=== PATIENT | female | born 1975 | race Caucasian/White ===

== ENCOUNTER → 2016-10-01 | Outpatient (CLI) | payer OTHER ==
[~2016-10-01] MED LIST: CYAN10005 SQ; EPP3/2 IM; FEXO5TAB2 PO; GABA600T PO; OXYC-57 PO; PANT40TA PO; PRVHFAIN INH; QVRINH80 INH; TIZA4CAP PO
[2016-10-01 19:11] LABS: BLOOD UREA NITROGEN 8 mg/dl (7-18); BUN/CREATININE RATIO 10.5 (10-20); CALCIUM 8.2 mg/dl (8.5-10.1); CARBON DIOXIDE 26 mmol/L (21-32); CHLORIDE 103 mmol/L (98-107); GLUCOSE 119 mg/dl (70-99); POTASSIUM 3.5 mmol/L (3.5-5.1); SODIUM 139 mmol/L (136-145)
== END | disposition home or self-care (01) ==
LOC: C.LABMFLN 14:50
PROVIDERS: ATTEND Family Medicine
DX: R31.9 Hematuria, unspecified (principal)

== ENCOUNTER → 2016-10-14 | Outpatient (CLI) | payer OTHER ==
[2016-10-14 17:59] LABS: URINE APPEARANCE CLEAR (CLEAR); URINE BILIRUBIN NEG (NEG); URINE COLOR YELLOW; URINE NITRITE NEG (NEG); URINE PH 5.5 (4.5-7.5); URINE SPECIFIC GRAVITY 1.031 (1.000-1.030); UROBILINOGEN NEG (NEG)
[2016-10-14 18:03] LABS: MANUAL MICROSCOPIC REQUIRED? NO; REVIEW REQ? NO
[2016-10-14 18:05] LABS: BASO ABS # 0.07 K/uL (0-0.2); COMPLETE YES; EOS % 2.3 %; HEMATOCRIT 37.2 % (37-47); IG% 0.3 %; LYMPH % 33.6 %; LYMPH ABS # 2.45 K/uL (1.2-3.4); MEAN CELL VOLUME 90.5 fL (80-100); MEAN PLATELET VOLUME 10.8 fL (7.4-10.4); MONO % 10.4 %; NEUT % 52.4 %; PLATELET COUNT 265 K/uL (130-400); RED BLOOD COUNT 4.11 M/uL (4.2-5.4)
[2016-10-14 18:18] LABS: BLOOD UREA NITROGEN 8 mg/dl (7-18); BUN/CREATININE RATIO 12.7 (10-20); CALCIUM 8.1 mg/dl (8.5-10.1); CARBON DIOXIDE 28 mmol/L (21-32); CHLORIDE 104 mmol/L (98-107); CREATININE 0.66 mg/dl (0.60-1.20); GLUCOSE 70 mg/dl (70-99); POTASSIUM 3.5 mmol/L (3.5-5.1); SODIUM 140 mmol/L (136-145)
== END | disposition home or self-care (01) ==
LOC: C.LABMFLN 11:09
PROVIDERS: ATTEND Orthopaedic Surgery
DX: Z01.812 Encounter for preprocedural laboratory examination (principal)

== ENCOUNTER 2016-10-17 06:24 | Day surgery (SDC) | payer OTHER ==
[2016-10-14 14:20] VITALS: BMI 31.0
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
[~2016-10-17] VITALS: Ht 160 cm; Wt 81.8 kg
[~2016-10-17 06:24] MED LIST changes: +CEFAZOLIN 2000 MG/60 ML D5W IV SCH; +LACTATED RINGER'S 1000ML 1,000 ML IV SCH
[2016-10-17 06:45] VITALS: BP 101/61; PULSE 90; TEMP 36.5; O2SAT 99; Ht 160 cm; Wt 81.8 kg
[2016-10-17] MEDS ORDERED: FENTANYL CITRATE INJ 50 MCG/1 ML 2 ML VIAL ONE ×2 (07:55→08:43)
[2016-10-17] MEDS ORDERED: KETAMINE HCL INJ 50 MG/ML 10 ML VIAL ONE (07:55)
[2016-10-17] MEDS ORDERED: MIDAZOLAM HCL 1 MG/ML 2ML VIAL ONE (07:55)
--- NOTE | 2016-10-17 08:00 | History & Physical Bridge Note ---
H&P Re-Evaluation Bridge Note: I have examined the patient, reviewed the History & Physical and in the interval since the performance of the History & Physical I have noted the following changes of clinical significance: No changes noted
[2016-10-17] MEDS ORDERED: BUPIVACAINE/EPINEPHRINE 0.25% 1:200,000 30 ML VIAL ONE (08:19)
[2016-10-17] MEDS ORDERED: DEXAMETHASONE SOD INJ 4 MG/ML VIAL ONE ×2 (08:20→08:50)
[2016-10-17] MEDS ORDERED: ATROPINE SULFATE 0.1 MG/ML 5ML SYR IV PRN (08:30)
[2016-10-17] MEDS ORDERED: EpHEDrine SULFATE INJ 50 MG/ML AMP IV PRN (08:30)
[2016-10-17] MEDS ORDERED: ONDANSETRON INJ 2 MG/ML 2 ML VIAL IV PRN ×2 (08:30→09:30)
[2016-10-17] MEDS ORDERED: PROMETHAZINE HCL INJ 6.25 MG in SODIUM CHLORIDE 0.9% 50ML 50 ML IV PRN (08:30)
[2016-10-17] MEDS ORDERED: PROPOFOL IV EMULSION 10 MG/ML 20 ML VIAL IV ONE (08:50)
[2016-10-17] MEDS ORDERED: ONDANSETRON INJ 2 MG/ML 2 ML VIAL ONE (08:50)
[2016-10-17] MEDS ORDERED: LIDOCAINE HCL 2% 2 ML VIAL (20MG/ML) ONE (08:50)
[2016-10-17] MEDS ORDERED: SODIUM CHLORIDE 0.9% INJ 10 ML VIAL ONE (09:00)
[2016-10-17] MEDS ORDERED: KETOROLAC TROMETHAMINE 30 MG/ML VIAL ONE ×2 (09:00→09:06)
--- NOTE | 2016-10-17 09:11 | [facility] Post Operative Brief Note ---
Immediate Operative Summary Operative Date Oct 17, 2016. Pre-Operative Diagnosis Right distal radius fracture with possible carpal tunnel syndrome Post-Operative Diagnosis Same as preoperative diagnosis Procedure(s) Performed Right Distal Radius Open Reduction Internal Fixation Fracture; Right Wrist Carpal Tunnel Release Surgeon Dr Hill Public Health Engineer Surgeon(s) Johnnie Davis PA-C Estimated Blood Loss 0 Findings maluniting fracture Specimens none Complication(s) None Disposition Recovery Room / PACU
[2016-10-17] MEDS ORDERED: BACITRACIN 50,000 UNITS IR ONE (09:15)
--- NOTE | 2016-10-17 09:15 | DIAGNOSTIC IMAGING REPORT ---
INTRAOPERATIVE RADIOGRAPHS CLINICAL HISTORY: Open reduction and internal fixation of the right wrist. Fluoroscopy time: 13 seconds. FINDINGS: 2 spot fluoroscopic views of the right wrist are presented. There has been buttress plate fixation of a comminuted distal radial fracture. There is also an avulsion fracture of the ulnar styloid. Overlying soft tissue edema is noted. IMPRESSION: Intraoperative images from open reduction and internal fixation of a distal radial fracture as above. Electronically signed by: Darin Mulligan M.D. 10/17/2016 9:14 AM Dictated Date/Time: 10/17/2016 9:11 AM
[2016-10-17] MEDS ORDERED: OXYCODONE HCL IR 5 MG TAB (IMMEDIATE RELEASE) PO PRN ×2 (09:30)
[2016-10-17] MEDS ORDERED: MoRPHine SULFATE 4 MG/ML 1 ML CARP\\VIAL IV PRN (09:30)
--- NOTE | 2016-10-17 09:35 | OPERATIVE REPORT ---
DATE OF OPERATION: 10/17/2016 PREOPERATIVE DIAGNOSIS: Loss of reduction Colles fracture with carpal tunnel syndrome, right. POSTOPERATIVE DIAGNOSIS: Same. PROCEDURE: Open reduction internal fixation distal radius fracture with carpal tunnel release, right. SURGEON: Dr. Hill. CITY DRIVER: Johnnie Davis PA-C. ANESTHESIA: General. COMPLICATIONS: None. ATTEST OF NOTE: Following induction of adequate general anesthesia with regional block, the patient's right arm was prepped and draped in the usual sterile manner. The limb was exsanguinated with an Esmarch bandage and tourniquet was inflated to 250 mmHg. A zigzag incision was made over both the carpal tunnel, as well as distal radius. Subcutaneous tissue was bluntly dissected. Electrocautery was used for hemostasis. The median nerve was opened in the palm traversing the transverse carpal ligament. The dissection was carried bluntly just ulnar to the flexor carpi radialis where the pronator quadratus was exposed. The motor branch of the median nerve was identified and protected throughout the case. The Bovie was used to transect the pronator quadratus and a subperiosteal elevator was used to clear the volar aspect of the distal radius. The healing fracture was taken down using manual techniques and an anatomic reduction was obtained. This was provisionally held in position using a 0.062 K wire. A short distal radial locking plate was affixed to the proximal fragment using a cortical bone screw. Fluoroscopic guidance was utilized to adjust the position of the plate, and this was finally tightened down. The distal fragment was then lagged to the plate using a single cortical lag screw and finally fixed distally using 3 additional locking screws. The final locking screw was placed proximally. This anatomically fixed the fracture. The K wire was removed. Final x-rays were taken, revealing proper screw placement throughout. The wound was irrigated and closed using 2-0 Dexon and nylon. Sterile dressing of Adaptic, 4 x 4's, and a volar plaster splint was applied. The patient tolerated the procedure well. I attest to the content of the Intraoperative Record and any orders documented therein. Any exceptio ns are noted below.
--- NOTE | 2016-10-17 09:36 | Discharge Instructions ---
Discharge Instructions Visit Reason for Visit: Fracture of Right Radius; Carpal Tunnel Syndrome Discharge Discharge Diagnosis / Problem: Right Distal Radius Fracture; Carpal Tunnel Syndrome Discharge Goals Goal(s): Decrease discomfort, Improve function Activity Recommendations Activity Limitations: per Instructions/Follow-up section Lifting Limitations: none Weightbearing Status: Left non-weightbearing Anesthesia . Post Anesthesia Instructions: If you have had General Anesthesia or IV Sedation: * Do not drive today. * Resume driving when surgeon permits. * Do not make important decisions or sign legal documents today. * Call surgeon for: 1. Temperature elevations greater than 101 degrees F. 2. Uncontrollable pain. 3. Excessive bleeding. 4. Persistent nausea and vomiting. 5. Medication intolerance (nausea, vomiting or rash). * For nausea and vomiting use only clear liquids such as: tea, soda, bouillon until nausea subsides, then gradually increase diet as tolerated. * If you have any concerns or questions, call your surgeon's office. If physician is unavailable and it is an emergency, call 911 or go to the nearest emergency room. F/U with Dr Hill or Surinder Silveira PA-C in 10-14 days from the day of surgery. Call for appointment. [phone] . Instructions / Follow-Up Instructions / Follow-Up ACTIVITY RECOMMENDATIONS: * Avoid lifting anything heavier than a medium water glass until your first post operative visit. SPECIAL CARE INSTRUCTIONS: * Your bandage should be left in place. Please keep dressing clean and dry. * Some drainage onto the dressing may occur. This is normal. * If the bandage feels excessively tight, you may loosen the elastic bandage. Then call the physician's office for further instructions. * If possible, keep your hand elevated above the level of your heart for the first 2 post operative days. You may use a sling if necessary. * You should move your fingers regularly (50-100 motions per hour) unless otherwise instructed. SPECIAL PRECAUTIONS: * If you notice increased drainage, fever over 101 degrees F. or severe, unremitting pain, call your physician/office at . * You may have been prescribed pain medication. If you experience nausea and/or skin rash, discontinue this medication and contact our office for an alternative medication. FOLLOW UP VISIT: If appointment is not already scheduled: Please call [facility] to make a follow-up appointment after your surgery at . Diet Recommendations Recommended Home Diet: resume previous diet Procedures Procedures Performed: Right Distal Radius Open Reduction Internal Fixation Fracture; Right Wrist Carpal Tunnel Release Pending Studies Studies pending at discharge: no Medical Emergencies . Who to Call and When: Medical Emergencies: If at any time you feel your situation is an emergency, please call 911 immediately. . Non-Emergent Contact Non-Emergency issues call your: Surgeon Call Non-Emergent contact if: temperature is above 101.5, your pain is not controlled, your pain is worsening, wound has increased drainage, wound has increased redness . . "Provider Documentation" section prepared by Johnnie Davis.
[2016-10-17] MEDS: FENTANYL CITRATE INJ 50 MCG/1 ML 2 ML VIAL IV PRN ×4 (10:03→10:15)
[2016-10-17 10:55] VITALS: BP 116/79; PULSE 102; TEMP 36.4; O2SAT 97
[2016-10-17] MEDS ORDERED: NURSING VERBAL MED ORDER ONE (11:15)
[2016-10-17 11:25] VITALS: BP 123/74; PULSE 112; TEMP 36.7; O2SAT 95
[2016-10-17] MEDS ORDERED: OXYCODONE/ACETAMINOPHEN 5-325 TAB PO ONE (11:30)
--- NOTE | 2016-10-17 11:40 | Anesthesiology Progress Note ---
Anesthesia Post Op Note Date & Time Oct 17, 2016 at 11:40 Vital Signs Pain Intensity: 4 Vital Signs Past 12 Hours Date Time Temp Pulse Resp B/P Pulse Ox O2 Delivery O2 Flow Rate FiO2 10/17/16 10:40 37.2 94 20 138/88 100 Room Air 10/17/16 10:30 37.2 94 20 132/75 96 Room Air 10/17/16 10:20 98 20 104/74 100 Room Air 10/17/16 10:10 101 20 131/90 93 Room Air 10/17/16 10:00 106 16 138/94 93 Room Air 10/17/16 09:50 102 14 138/89 100 Mask 10 10/17/16 09:40 105 14 141/90 100 Mask 10 10/17/16 09:32 37.2 110 14 136/82 Mask 10/17/16 06:45 36.5 90 18 101/61 99 Room Air Notes Mental Status: alert / awake / arousable, participated in evaluation Pt Amnestic to Procedure: Yes Nausea / Vomiting: adequately controlled Pain: adequately controlled Airway Patency, RR, SpO2: stable & adequate BP & HR: stable & adequate Hydration State: stable & adequate Anesthetic Complications: no major complications apparent block working well in pacu
[2016-10-17 11:55] VITALS: BP 120/78; PULSE 112; TEMP 36.7; O2SAT 96
== END 2016-10-17 12:05 | disposition home or self-care (01) ==
LOC: C.ACU 06:24
DX: S52.531A Colles' fracture of right radius, initial encounter for closed fracture (principal); G56.01 Carpal tunnel syndrome, right upper limb; J45.909 Unspecified asthma, uncomplicated; F32.9 Major depressive disorder, single episode, unspecified; V89.2XXA Person injured in unspecified motor-vehicle accident, traffic, initial encounter; Y93.89 Activity, other specified; Y92.89 Other specified places as the place of occurrence of the external cause; Y99.8 Other external cause status; Z98.84 Bariatric surgery status; Z98.890 Other specified postprocedural states